=== PATIENT | female | born 1955 | race American Indian/Alaskan Native ===

== ENCOUNTER 2017-07-16 10:00 | Outpatient (CLI) | payer OTHER ==
--- NOTE | 2017-07-16 15:32 | Mammography Report ---
BILATERAL DIGITAL SCREENING MAMMOGRAM with CAD : 07/16/17 10:00:00 CLINICAL: Routine screening. COMPARISON:04/20/14 FINDINGS: The breasts are heterogeneously dense, which may obscure small masses.Left benign calcifications. No mass, architectural distortion or suspicious calcifications. IMPRESSION: No mammographic evidence of malignancy. BI-RADS CATEGORY: 2 -- Benign RECOMMENDATION: Routine mammographic screening in one year. COMMENT: Patient follow-up letters are generated by our [employer] application.
== END 2017-07-16 10:01 | disposition home or self-care (01) ==
LOC: SPVWC 10:00
DX: Z12.31 Encounter for screening mammogram for malignant neoplasm of breast (principal)
CPT/HCPCS: 77067; G0202

== ENCOUNTER 2019-11-28 11:33 | Outpatient (CLI) | payer MEDICARE ==
--- NOTE | 2019-11-29 10:55 | Mammography Report ---
DIGITAL SCREENING MAMMOGRAM WITH CAD, 11/28/2019 INDICATION: Routine screening mammography. TECHNIQUE: Digital bilateral 2D mammography was obtained in the craniocaudal and mediolateral obliq ue projections. This examination was interpreted with the benefit of Computer-Aided Detection analysi s. COMPARISON: 07/16/2017 and 04/20/2014 FINDINGS: Breast Density: The breasts are heterogeneously dense, which may obscure small masses. Bilateral parenchymal asymmetries and left outer architectural distortion require additional imaging. No suspicious calcifications. IMPRESSION: Bilateral asymmetries and left architectural distortion requiring additional imaging. Rec ommend recall for bilateral spot compression views and bilateral breast ultrasound if needed. Follow up recommendation: Special View: Spot Category 0: Incomplete. Needs additional imaging evaluation and/or prior mammograms for comparison. A "normal" or negative report should not discourage follow up or biopsy of a clinically significant f inding. A written summary of these findings will be mailed to the patient. The patient will be entered into a mammography reporting system which will generate a reminder letter for the patient's next appointmen t at the appropriate interval. The [employer] recommends yearly mammograms starting at age 40 and continuing as l alexandra as a woman is in good health. Breast MRI is recommended for women with an approximate 20-25% or greater lifetime risk of breast cancer, including women with a strong family history of breast or ova nate cancer or who have been treated for Hodgkin's disease. Signer Name: Orville Moya MD Signed: 11/29/2019 10:51 AM Workstation Name: [id number]
== END 2019-11-28 11:34 | disposition home or self-care (01) ==
LOC: SPVWC 11:33
PROVIDERS: ATTEND Internal Medicine
DX: Z12.31 Encounter for screening mammogram for malignant neoplasm of breast (principal)
CPT/HCPCS: 77067

== ENCOUNTER 2020-01-18 13:32 | Outpatient (CLI) | payer MEDICARE | END 2020-01-18 13:33 | disposition home or self-care (01) | LOC: SPVWC 13:32 | DX: R92.8 Other abnormal and inconclusive findings on diagnostic imaging of breast (principal) ==

== ENCOUNTER 2021-04-15 10:15 | Outpatient (CLI) | payer MEDICARE ==
--- NOTE | 2021-04-15 11:12 | Mammography Report ---
DIGITAL DIAGNOSTIC MAMMOGRAM WITH CAD CONVENTIONAL, 04/15/2021 CLINICAL INFORMATION / INDICATION: Patient presents for follow-up of previously seen asymmetric densi ty in the left breast. ABNORMAL MAMMOGRAM TECHNIQUE: Digital bilateral mammographic imaging was performed. This examination was interpreted with the benefit of Computer-aided Detection analysis. COMPARISON: Prior mammograms 06/19/2020, 01/18/2020, 11/28/2019, and 07/16/2017 FINDINGS: Breast Density: There are scattered areas of fibroglandular density. No dominant mass, suspicious calcifications or architectural distortion in either breast. The previously described focal asymmetric density in the upper outer quadrant of the left breast is a gain much less conspicuous compared with the prior mammogram dated 11/28/2019 and is therefore consider ed benign. There are stable benign-appearing calcifications seen in the left breast. IMPRESSION: No mammographic evidence of malignancy. Follow up recommendation: Routine yearly BI-RADS Category 2: Benign. A "normal" or negative report should not discourage follow up or biopsy of a clinically significant f inding. A written summary of these findings will be mailed to the patient. The patient will be entered into a mammography reporting system which will generate a reminder letter for the patient's next appointmen t at the appropriate interval. According to the [employer], yearly mammograms are recommended starting at age 40 and continuing as long as a woman is in good health. Breast MRI is recommended for women with an john paul roximately 20-25% or greater lifetime risk of breast cancer, including women with a strong family his tory of breast or ovarian cancer and women who have been treated for Hodgkin's disease. Signer Name: Elly Chavez MD Signed: 04/15/2021 11:08 AM Workstation Name: [id number]
== END 2021-04-15 10:16 | disposition home or self-care (01) ==
LOC: SPVWC 10:15
PROVIDERS: ATTEND Internal Medicine
DX: R92.1 Mammographic calcification found on diagnostic imaging of breast (principal); J45.20 Mild intermittent asthma, uncomplicated; E78.2 Mixed hyperlipidemia; M06.9 Rheumatoid arthritis, unspecified; M15.0 Primary generalized (osteo)arthritis; Z71.3 Dietary counseling and surveillance
CPT/HCPCS: 77066